=== PATIENT | male | born 1965 | race Caucasian/White ===

== ENCOUNTER 2020-07-01 13:34 | Inpatient (IN) | payer OTHER ==
[2020-07-01] MEDS ORDERED: Heparin 10,000 UNITS/ 10 ML VIAL ONE (14:12)
[2020-07-01] MEDS ORDERED: Aspirin Chewable 81 MG TAB ONE (14:16)
[2020-07-01 14:21] LABS: #Basophils 0.1 thou/uL (0.0-0.2); #Eosinphils 0.1 thou/uL (0.0-0.7); #Lymphocytes 1.7 thou/uL (1.20-3.40); #Monocytes 0.7 thou/uL (0.11-0.59); #Neutrophils 10.4 thou/uL (1.40-6.50); %Basophils 0.5 % (0.0-1.0); %Eosinophils 0.5 % (0.0-10.0); %Monocytes 5.4 % (0.0-10.0); %Neutrophils 80.7 % (42.0-75.0); Hemoglobin 14.4 g/dL (14.0-18.0); Mean Corpuscular Hemoglobin 32.4 pg (27.0-31.0); Mean Corpuscular Volume 95.4 fL (78.0-98.0); Mean Platelet Volume 8.6 fL (7.4-10.4); Platelet Count 217 thou/uL (130-400); RBC Distribution Width 12.5 % (11.5-14.5); Red Blood Cell (RBC) Count 4.45 mill/uL (4.70-6.10); White Blood Cell (WBC) Count 12.9 thou/uL (4.8-10.8)
[2020-07-01] MEDS ORDERED: Aspirin 325 MG TAB ONE (14:21)
[2020-07-01 14:36] LABS: Prothrombin Time 13.4 sec (12.0-14.7)
--- NOTE | 2020-07-01 14:38 | RAD ---
PORTABLE CHEST: Date: 07/01/2020 INDICATION: Chest pain. COMPARISON: 12/12/2014. FINDINGS: Lungs appear clear. No definite infiltrate. No evidence of vascular congestion. Heart and mediastinum unremarkable. IMPRESSION: No acute findings. POS: [facility]
[2020-07-01 14:48] LABS: ALT (SGPT) 22 U/L (8-55); AST (SGOT) 45 U/L (5-34); Albumin 4.2 g/dL (3.5-5.0); Alkaline Phosphatase 90 U/L (40-110); Anion Gap 13 mmol/L (10-20); BUN (Urea Nitrogen) 12 mg/dL (8.4-25.7); Bilirubin, Total 0.7 mg/dL (0.2-1.2); CK (CPK) 564 U/L (30-200); Calc. Creatinine Clearance 0 mL/min (70-130); Calcium 9.3 mg/dL (7.8-10.44); Carbon Dioxide 22 mmol/L (22-29); Chloride 107 mmol/L (98-107); Estimated GFR-MDRD 68; Glucose 103 mg/dL (70-105); Lipase 12 U/L (8-78); Potassium 3.9 mmol/L (3.5-5.1); Protein, Total 7.2 g/dL (6.0-8.3); Sodium 138 mmol/L (136-145)
[2020-07-01] MEDS ORDERED: Milk Of Magnesia 30 ML UDCUP PO PRN (15:14)
[2020-07-01] MEDS ORDERED: Zolpidem Tartrate 5 MG TAB PO PRN (15:14)
[2020-07-01] MEDS ORDERED: Aggrastat 12.5 MG/250 ML 250 ML IVPB SCH (15:15)
[2020-07-01] MEDS ORDERED: Sodium Chloride 0.9% 250 ML IV SCH (15:15)
[2020-07-01] MEDS ORDERED: Nitroglycerin 0.4 MG TAB (25 Tab Bottle) ONE (15:36)
--- NOTE | 2020-07-01 15:56 | HP ---
CHIEF COMPLAINT: Chest pain. HISTORY OF PRESENT ILLNESS: Mr. Grande is a very pleasant 54-year-old white gentleman who comes to the hospital for chest pain. He states he started having chest pain this morning at 8 a.m. We saw him at 2 p.m. He decided to come in and in the ER, he was found to have inferior ST elevation with reciprocal changes, so Cardiology was consulted immediately. On my evaluation, Mr. Grande states his pain is better after he was given nitroglycerin. We took emergently to the catheterization lab, and he was found to have an occluded distal RCA. There seemed to be a ruptured plaque in the proximal portion of the RCA and severely stenosed at that point, and then most likely thrombus had just flown downstream and blocked the bifurcation. We ballooned the area of concern, and there was diffuse disease distally in all the small RPL and RPA. Two drug-eluting stents were placed in the prox and mid RCA. Good results. He does have some ostial RCA, but this is not significant. We then took pictures of the left side. There is mild to moderate disease, nothing to revascularize at that point. EF is about 35%. He is chest pain free now. PAST MEDICAL HISTORY: Sleep apnea. OUTPATIENT MEDICATIONS: He takes an allergy pill in the morning. ALLERGIES: 1. TESSALON PERLES. 2. MORPHINE MAKES HIM GO WILD AND CRAZY HE STATES. FAMILY HISTORY: Noncontributory. SOCIAL HISTORY: Smokes a pack a day for many years now. Drinks about 4 beers a day. No drug use. REVIEW OF SYSTEMS: A 12-point review of systems was done and was all negative unless stated in the History of Present Illness. PHYSICAL EXAMINATION: VITAL SIGNS: Temperature 98.2, pulse 62, respiratory rate 16, saturating 99% on room air, and blood pressure 119/47. GENERAL: Awake, alert, and oriented x3. No distress. HEENT: Normocephalic, atraumatic. NECK: Supple. LUNGS: Clear. CARDIOVASCULAR: S1 and S2. No S3 or S4. No murmurs. ABDOMEN: Soft. Positive bowel sounds. EXTREMITIES: No edema. SKIN: Warm and dry. LABORATORY DATA: Laboratory work was reviewed. CBC with a white count of 12, hemoglobin of 14, hematocrit 42, and platelet count of 217. Coags were unremarkable. Chemistries were unremarkable. GFR was 68. AST was 45. CK was 564. Troponin is pending at the time of this dictation. EKG showed inferior ST elevations with reciprocal changes. Chest x-ray was unremarkable. ASSESSMENT: 1. Inferior ST-elevation myocardial infarction. 2. Status post drug-eluting stent to the right coronary artery. 3. Tobacco abuse. 4. Ischemic cardiomyopathy, reduced ejection fraction post myocardial infarction. 5. Sleep apnea with noncompliance. PLAN: 1. Dual anti-platelet therapy for one year. He states he is very good taking all his medications, and he wants the best type of stent. He states he will take his medication. He is aware of the risks of not taking it, which include fatal MIs and he verbalized understanding of this and agreed to this before the procedure. 2. High dose statin. 3. We will see how his blood pressure does in the next few days to see if we can start beta gustavo and LUKAS inhibitors. 4. Echocardiogram to be done. 5. PPI for stress ulcer prophylaxis. 6. Subcu Lovenox for DVT prophylaxis. 7. Likely home in the next 2 or 3 days. May need LifeVest depending on ejection fraction on echo. Job ID: [id number]
[2020-07-01 16:41] LABS: CKMB 87.2 ng/mL (0-6.6); Troponin I 14.558 ng/mL (< 0.028)
[2020-07-01] MEDS ORDERED: Morphine 4 MG/ML VIAL ONE (16:54)
[2020-07-01 17:07] VITALS: BMI 32.1
[2020-07-01] MEDS: TICAGRELOR 90 MG TABLET PO SCH (20:34)
[2020-07-01] MEDS: Atorvastatin Calcium 40 MG TAB PO SCH (20:34)
[2020-07-01] MEDS: Morphine 2 MG/ML VIAL SLOW IVP PRN (21:09)
[2020-07-01 21:38] LABS: CKMB 128.7 ng/mL (0-6.6)
[2020-07-01 21:57] LABS: Troponin I 58.049 ng/mL (< 0.028)
[2020-07-01] MEDS: traMADol HCl 50 MG TAB PO PRN (22:47)
[2020-07-01] MEDS: Mag-Al 1200 mg/1200 mg/30 ML UDCUP PO PRN (23:49)
[2020-07-02] MEDS: Morphine 2 MG/ML VIAL SLOW IVP PRN (00:34)
[2020-07-02] MEDS ORDERED: Morphine 2 MG/ML VIAL SLOW IVP SCH (01:30)
[2020-07-02 03:26] LABS: #Lymphocytes 1.1 thou/uL (1.20-3.40); #Monocytes 0.9 thou/uL (0.11-0.59); #Neutrophils 11.1 thou/uL (1.40-6.50); %Basophils 0.3 % (0.0-1.0); %Eosinophils 0.3 % (0.0-10.0); %Lymphocytes 8.5 % (21.0-51.0); %Monocytes 6.7 % (0.0-10.0); %Neutrophils 84.2 % (42.0-75.0); Hemoglobin 13.4 g/dL (14.0-18.0); Mean Corpuscular HGB CONC 33.8 g/dL (32.0-36.0); Mean Corpuscular Hemoglobin 32.2 pg (27.0-31.0); Mean Corpuscular Volume 95.3 fL (78.0-98.0); Platelet Count 187 thou/uL (130-400); RBC Distribution Width 12.4 % (11.5-14.5); Red Blood Cell (RBC) Count 4.16 mill/uL (4.70-6.10); White Blood Cell (WBC) Count 13.2 thou/uL (4.8-10.8)
[2020-07-02 03:48] LABS: ALT (SGPT) 32 U/L (8-55); AST (SGOT) 98 U/L (5-34); Albumin 3.9 g/dL (3.5-5.0); Alkaline Phosphatase 80 U/L (40-110); Anion Gap 13 mmol/L (10-20); BUN (Urea Nitrogen) 12 mg/dL (8.4-25.7); Bilirubin, Total 0.9 mg/dL (0.2-1.2); Calc. Creatinine Clearance 138 mL/min (70-130); Carbon Dioxide 20 mmol/L (22-29); Cardiac Risk 4.7 (Less than 4.5); Chloride 106 mmol/L (98-107); Cholesterol 185 mg/dl (< 200 Desired); Estimated GFR-MDRD Greater than 90; Globulin 2.8 g/dL (2.4-3.5); Glucose 132 mg/dL (70-105); HDL Cholesterol 39 mg/dL (>60 Neg Risk); LDL Cholesterol, Calculated 127 mg/dL; Potassium 3.8 mmol/L (3.5-5.1); Protein, Total 6.7 g/dL (6.0-8.3); Sodium 135 mmol/L (136-145); Triglycerides 93 mg/dL (Less than 150)
[2020-07-02] MEDS: Aspirin Chewable 81 MG TAB PO SCH (07:46)
[2020-07-02] MEDS: TICAGRELOR 90 MG TABLET PO SCH ×2 (07:46→20:51)
[2020-07-02] MEDS ORDERED: Lisinopril 2.5 MG TAB PO SCH ×2 (09:00→11:57)
[2020-07-02] MEDS: Mag-Al 1200 mg/1200 mg/30 ML UDCUP PO PRN (09:16)
[2020-07-02] MEDS: Enoxaparin Sodium 30 MG/0.3 ML SYRINGE SC SCH (10:47)
--- NOTE | 2020-07-02 11:56 | PDOC.CPN ---
- Subjective Date: 07/02/20 Time: 11:54 Interval history: He is doing better. No chest pain, no SOB. No bleeding issues. - Review of Systems General: denies: fever/chills, weight/appetite/sleep changes, night sweats, fatigue Respiratory: denies: cough, congestion, shortness of breath, exercise intolerance Cardiovascular: denies: chest pain, palpitation, edema, paroxysmal nocturnal dyspnea, orthopnea Gastrointestinal: denies: nausea, vomiting, diarrhea, constipation, abd pain, GI bleeding Musculoskeletal: denies: pain, tenderness, stiffness, swelling, arthritis/ arthralgias Neurological: denies: numbness, syncope, seizure, weakness - Objective Allergies/Adverse Reactions: Allergies Allergy/AdvReac Type Severity Reaction Status Date / Time benzonatate Allergy Intermediate Verified 07/01/20 17:28 [From Chano Wright] codeine Allergy Intermediate Lack of Verified 07/01/20 17:22 Appetite Visit Medications: Current Medications Al Hydroxide/Mg Hydroxide (Maalox) 30 ml PO Q3H PRN PRN Reason: Indigestion Last Admin: 07/02/20 09:16 Dose: 30 ml Aspirin (Aspirin Chewable) 81 mg PO DAILY [facility] Last Admin: 07/02/20 07:46 Dose: 81 mg Atorvastatin Calcium (Lipitor) 80 mg PO HS [facility] Last Admin: 07/01/20 20:34 Dose: 80 mg Enoxaparin Sodium (Lovenox) 30 mg SC 0900 [facility] Last Admin: 07/02/20 10:47 Dose: 30 mg Lisinopril (Zestril) 1.25 mg PO DAILY [facility] Last Admin: 07/02/20 07:46 Dose: 1.25 mg Magnesium Hydroxide (Milk Of Magnesium) 30 ml PO Q12H PRN PRN Reason: Constipation Metoprolol Succinate (Toprol Xl) 12.5 mg PO DAILY [facility] Last Admin: 07/02/20 07:47 Dose: 12.5 mg Morphine Sulfate (Morphine) 2 mg SLOW IVP Q4H PRN PRN Reason: Pain Last Admin: 07/02/20 00:34 Dose: 2 mg Pantoprazole Sodium (Protonix) 40 mg PO DAILY [facility] Last Admin: 07/02/20 07:46 Dose: 40 mg Ticagrelor (Brilinta) 90 mg PO BID [facility] Last Admin: 07/02/20 07:46 Dose: 90 mg Tramadol HCl (Ultram) 50 mg PO Q6H PRN PRN Reason: Pain Last Admin: 07/01/20 22:47 Dose: 50 mg Zolpidem Tartrate (Ambien) 5 mg PO HSPRN PRN PRN Reason: Insomnia Vital Signs & Weight: Vital Signs Temp Pulse Pulse BP BP Pulse Ox Pulse Ox 07/02/20 11:00 98.0 F 07/02/20 09:18 82 76 135/80 168/87 H 95 100 07/02/20 07:00 98.2 F 07/02/20 04:00 97.7 F 07/02/20 00:00 97.5 F L Weight 224 lb 3.362 oz - Physical Exam General: alert & oriented x3 HEENT: mucus membranes moist Neck: supple neck Cardiac: regular rate and rhythm Lungs: clear to auscultation Neuro: grossly intact Abdomen: active bowel sounds Extremities: no edema Skin: clear Musculoskeletal: no pain - Labs Result Diagrams: 07/02/20 03:07 07/02/20 03:07 Troponin/CKMB CK-MB (CK-2) 128.7 ng/mL (0-6.6) H* 07/01/20 21:00 Troponin I 58.049 ng/mL (< 0.028) H* 07/01/20 21:00 - Telemetry Sinus rhythms and dysrhythmias: sinus rhythm - Assessment/Plan Assessment/Plan: 1. Inferior STEMI 2. S/P TIAGO to RCA 3. Late presentation MD 4. Ischemic CM EF at 35% on LHC, awaiting echo. 5. Tobacco abuse 6. Seep apnea. PLAN: - Continue TALAT with brilinta ands Aspirin 81 - High dose statrin - Low dose BB. - Will start Entresto. - Echo pending.
[2020-07-02] MEDS: traMADol HCl 50 MG TAB PO PRN (20:50)
[2020-07-02] MEDS: Atorvastatin Calcium 40 MG TAB PO SCH (20:51)
[2020-07-03] MEDS: Enoxaparin Sodium 30 MG/0.3 ML SYRINGE SC SCH (10:09)
[2020-07-03] MEDS: TICAGRELOR 90 MG TABLET PO SCH (10:09)
[2020-07-03] MEDS: Aspirin Chewable 81 MG TAB PO SCH (10:09)
[2020-07-03] MEDS: traMADol HCl 50 MG TAB PO PRN (10:16)
[2020-07-03 11:47] VITALS: BP 120/74; TEMP 96.6
--- NOTE | 2020-07-03 18:26 | DIS ---
DATE OF ADMISSION: 07/01/2020 DATE OF DISCHARGE: 07/03/2020 DISCHARGING PHYSICIAN: Johnathon Young MD PRIMARY DIAGNOSES: 1. Acute inferior ST-elevation myocardial infarction. 2. Ischemic cardiomyopathy. PROCEDURES PERFORMED: 1. Left heart catheterization. 2. Percutaneous coronary intervention with drug-eluting stent to the right coronary artery. 3. Echocardiogram. 4. Chest x-ray. SUMMARY: Mr. Grande is a pleasant 54-year-old gentleman, who comes to the hospital for chest pain. He was taken emergently to the catheterization lab as he was found to have inferior ST elevations and was found to have an occluded distal RCA. Thought to be large thrombus on the proximal vessel from a ruptured plaque that floated downstream and occluded the distal bifurcation. This was ballooned opened and restored flow distally and stented the proximal ruptured plaque which was stenosing. He did well postoperatively. His EF on the heart cath was about 30% to 35%; however, on the echo, it was a lot better, probably back to normal about 50% to 55%. with inferior wall still somewhat akinetic. He is doing well. He denies any issues. His rhythm remained stable with no arrhythmias, not even PVCs. He was started on Brilinta and low-dose aspirin as well as metoprolol and Entresto. He is tolerating all his medications without issues. His blood pressure is holding well. He will follow up with me in about 2 to 4 weeks. Follow up with primary care doctor. Tobacco cessation counseling was performed. Over 45 minutes spent at bedside with the patient counseling on discharge. Job ID: [id number]
--- NOTE | 2020-07-06 12:12 | EKG ---
Test Reason : Blood Pressure : / mmHG Vent. Rate : 064 BPM Atrial Rate : 064 BPM P-R Int : 150 ms QRS Dur : 090 ms QT Int : 402 ms P-R-T Axes : 024 024 065 degrees QTc Int : 414 ms Normal sinus rhythm Inferior infarct , possibly acute ACUTE MO / STEMI Consider right ventricular involvement in acute inferior infarct Abnormal ECG Confirmed by BRISA Medellin, DANIEL ([id number]), commissioning editor APURVA ARRINGTON ([id number]) on 07/06/2020 12:11:58 PM Referred By: Confirmed By:DANIEL LEDEZMA M.D.
== END 2020-07-03 17:09 | disposition home or self-care (01) | DRG 247 ==
LOC: ERS 13:34 → SDC 14:00 → ERS 14:24 → CCU 15:59 → 2NO 07-02 17:42
PROVIDERS: ADMIT Internal Medicine Cardiovascular Disease; ATTEND Internal Medicine Cardiovascular Disease
PROC: 027034Z Dilation of Coronary Artery, One Artery with Drug-eluting Intraluminal Device, Percutaneous Approach (ICD-10-PCS; principal; 2020-07-01)
PROC: 4A023N7 Measurement of Cardiac Sampling and Pressure, Left Heart, Percutaneous Approach (ICD-10-PCS; 2020-07-01)
PROC: B2111ZZ Fluoroscopy of Multiple Coronary Arteries using Low Osmolar Contrast (ICD-10-PCS; 2020-07-01)
PROC: B2151ZZ Fluoroscopy of Left Heart using Low Osmolar Contrast (ICD-10-PCS; 2020-07-01)
DX: I21.19 ST elevation (STEMI) myocardial infarction involving other coronary artery of inferior wall (principal); I25.5 Ischemic cardiomyopathy; G47.30 Sleep apnea, unspecified; F17.210 Nicotine dependence, cigarettes, uncomplicated; Z88.5 Allergy status to narcotic agent; Z88.8 Allergy status to other drugs, medicaments and biological substances; Z91.19 Patient's noncompliance with other medical treatment and regimen
CPT/HCPCS: 36415; 71045; 80053; 80061; 82550; 82553; 83690; 83880; 84443; 84484; 85025; 85347; 85610; 85730; 92933; 93005; 93010; 93306; 93458; 93798; 94760; C1757; C1874; C9602; J1644; J1650; J2270

== ENCOUNTER 2020-07-13 16:36 | Observation (INO) | payer OTHER ==
[2020-07-13] MEDS ORDERED: Aspirin Chewable 81 MG TAB ONE (16:58)
[2020-07-13 17:15] LABS: #Basophils 0.1 thou/uL (0.0-0.2); #Eosinphils 0.2 thou/uL (0.0-0.7); #Lymphocytes 1.6 thou/uL (1.20-3.40); #Monocytes 0.7 thou/uL (0.11-0.59); #Neutrophils 5.6 thou/uL (1.40-6.50); %Basophils 0.7 % (0.0-1.0); %Eosinophils 2.9 % (0.0-10.0); %Lymphocytes 19.9 % (21.0-51.0); %Monocytes 8.2 % (0.0-10.0); %Neutrophils 68.4 % (42.0-75.0); Hemoglobin 14.8 g/dL (14.0-18.0); Mean Corpuscular HGB CONC 34.3 g/dL (32.0-36.0); Mean Corpuscular Hemoglobin 32.5 pg (27.0-31.0); Mean Platelet Volume 8.2 fL (7.4-10.4); Platelet Count 312 thou/uL (130-400); RBC Distribution Width 12.1 % (11.5-14.5); Red Blood Cell (RBC) Count 4.56 mill/uL (4.70-6.10); White Blood Cell (WBC) Count 8.2 thou/uL (4.8-10.8)
[2020-07-13 17:39] LABS: ALT (SGPT) 20 U/L (8-55); AST (SGOT) 14 U/L (5-34); Albumin 4.3 g/dL (3.5-5.0); Alkaline Phosphatase 109 U/L (40-110); Anion Gap 13 mmol/L (10-20); BUN (Urea Nitrogen) 19 mg/dL (8.4-25.7); Bilirubin, Total 0.6 mg/dL (0.2-1.2); Calc. Creatinine Clearance 0 mL/min (70-130); Calcium 9.6 mg/dL (7.8-10.44); Carbon Dioxide 20 mmol/L (22-29); Chloride 106 mmol/L (98-107); Estimated GFR-MDRD 73; Globulin 3.1 g/dL (2.4-3.5); Glucose 105 mg/dL (70-105); Protein, Total 7.4 g/dL (6.0-8.3); Sodium 135 mmol/L (136-145)
--- NOTE | 2020-07-13 18:04 | RAD ---
PORTABLE CHEST: 07/13/20 HISTORY: Chest pain. COMPARISON: 07/01/20 study. Heart size appears slightly enlarged. Mediastinal structures are unremarkable. The lungs are clear of infiltrates. No signs of failure. IMPRESSION: Minimal cardiomegaly. No acute findings. POS: OFF
--- NOTE | 2020-07-13 18:49 | PDOC.FPRHP ---
- Allergies/Adverse Reactions Allergies Allergy/AdvReac Type Severity Reaction Status Date / Time benzonatate Allergy Intermediate Verified 07/01/20 17:28 [From Chano Wright] codeine Allergy Intermediate Lack of Verified 07/01/20 17:22 Appetite - Home Medications Medication Instructions Recorded Confirmed Type Esomeprazole Magnesium [Nexium] 20 mg PO DAILY 07/01/20 07/01/20 History Levocetirizine Dihydrochloride 5 mg PO DAILY 07/01/20 07/01/20 History [Xyzal] Aspirin Chewable [Aspirin Chewable 81 mg PO DAILY #30 tab 07/03/20 Rx Tablet] Atorvastatin Calcium [Lipitor] 80 mg PO HS #30 tab 07/03/20 Rx Metoprolol Succinate [Toprol XL] 12.5 mg PO DAILY #30 tab 07/03/20 Rx Sacubitril/Valsartan [Entresto 24 1 tab PO BID #60 tab 07/03/20 Rx mg-26 mg Tablet] Ticagrelor [Brilinta] 90 mg PO BID #60 tab 07/03/20 Rx - History PMHx: PSHx: FHx: Social: MEDICAL HISTORY Notes: MD. MALE SURGICAL HISTORY CARDIAC STENT X 3. Patient drinks every day, less than 5 drinks per day, Alcohol history notes: 2- 3 BEERS DAILY, Patient denies drug use, Patient is a former tobacco user, smoked cigarettes, Patient quit smoking in the past year, Tobacco history notes : 35 -40 YEAR HX OF SMOKING. - Vital signs BP: [] HR: [] RR: [] Tmax: [] Pox: []% on [] Wt: [] FMR H&P: Results - Labs Result Diagrams: 07/13/20 16:55 07/13/20 16:55 Lab results: WBC 8.2 thou/uL (4.8-10.8) 07/13/20 16:55 Hgb 14.8 g/dL (14.0-18.0) 07/13/20 16:55 Hct 43.3 % (42.0-52.0) 07/13/20 16:55 MCV 95.0 fL (78.0-98.0) 07/13/20 16:55 Plt Count 312 thou/uL (130-400) 07/13/20 16:55 Neutrophils % 68.4 % (42.0-75.0) 07/13/20 16:55 Sodium 135 mmol/L (136-145) L 07/13/20 16:55 Potassium 4.0 mmol/L (3.5-5.1) 07/13/20 16:55 Chloride 106 mmol/L (98-107) 07/13/20 16:55 Carbon Dioxide 20 mmol/L (22-29) L 07/13/20 16:55 BUN 19 mg/dL (8.4-25.7) 07/13/20 16:55 Creatinine 1.05 mg/dL (0.7-1.3) 07/13/20 16:55 Glucose 105 mg/dL (70-105) 07/13/20 16:55 Calcium 9.6 mg/dL (7.8-10.44) 07/13/20 16:55 Total Bilirubin 0.6 mg/dL (0.2-1.2) 07/13/20 16:55 AST 14 U/L (5-34) 07/13/20 16:55 ALT 20 U/L (8-55) 07/13/20 16:55 Alkaline Phosphatase 109 U/L (40-110) 07/13/20 16:55 CK-MB (CK-2) 1.0 ng/mL (0-6.6) 07/13/20 16:55 B-Natriuretic Peptide 85.1 pg/mL (0-100) 07/13/20 16:55 Serum Total Protein 7.4 g/dL (6.0-8.3) 07/13/20 16:55 Albumin 4.3 g/dL (3.5-5.0) 07/13/20 16:55 FMR H&P: Upper Level - Plan Date/Time: 07/13/20 8882 I, [], have evaluated this patient and agree with findings/plan as outlined by help desk intern resident. Pertinent changes/additions are listed here.
[2020-07-13] MEDS ORDERED: Nitroglycerin 0.4 MG TAB (25 Tab Bottle) PO PRN (19:34)
[2020-07-13 20:38] VITALS: BMI 29.4
[2020-07-13] MEDS ORDERED: Atorvastatin Calcium 40 MG TAB PO SCH (21:00)
[2020-07-13 21:08] LABS: Troponin I 0.051 ng/mL (< 0.028)
[2020-07-13] MEDS: TICAGRELOR 90 MG TABLET PO SCH (23:24)
[2020-07-13 23:33] LABS: Troponin I 0.053 ng/mL (< 0.028)
--- NOTE | 2020-07-13 23:53 | HP ---
CHIEF COMPLAINT: Chest pain. HISTORY OF PRESENT ILLNESS: Mr. Grande is a 54-year-old male who recently had inferior ST-elevation, inferior wall OH requiring a stent RCA, presented to the emergency room with chest pain that has been going on and off. Today, the patient describes the pain as right-sided, comes and goes, sharp in nature. The pain is different than when he had the MRI. At that time, he had epigastric and throat pain. Initial workup in the emergency room including troponin showed 0.076, but this is down trending from the time of discharge. EKG showed nonspecific changes T-wave inversions. Given patient cardiac history, the patient is being admitted to hospital for further management and to rule out acute coronary syndrome. PAST MEDICAL HISTORY: 1. Inferior wall myocardial infarction. 2. Hyperlipidemia. 3. Hypertension. 4. Cigarette smoker. 5. Cardiomyopathy with ejection fraction of 35%. PAST SURGICAL HISTORY: Cardiac stent. FAMILY HISTORY: Reviewed and noncontributory. SOCIAL HISTORY: The patient has a history of long-time smoking. Drinks alcohol moderately. HOME MEDICATIONS: Please see home medication reconciliation form for updated medications. ALLERGY: Allergy to benzonatate, codeine. REVIEW OF SYSTEMS: Review of 14 systems negative except what is mentioned in history of present illness. PHYSICAL EXAMINATION: VITAL SIGNS: Blood pressure is 130/85, respiratory rate is 14, heart rate is 65, temperature 98.6. HEAD AND NECK: Normocephalic, atraumatic. Neck is supple. No JVD. HEART: S1, S2. Regular. ABDOMEN: Soft and nontender. Bowel sounds present. NEUROLOGIC: Awake, alert, oriented x3. PSYCHIATRIC: Normal mood. EXTREMITIES: No clubbing, cyanosis. IMAGING: Chest x-ray shows minimal cardiomegaly. No acute findings. ASSESSMENT AND PLAN: 1. Acute chest pain, rule out acute coronary syndrome. 2. History of myocardial infarction with stent to the right coronary artery, 2 weeks ago. 3. Cardiomyopathy, ischemic. 4. Cigarette smoker. PLAN: 1. Admit. 2. Telemetry monitoring. 3. Aspirin. 4. Serial troponin. 5. Consider Cardiology consultation in a.m. for evaluation further recommendations. 6. Reconcile home medications. 7. DVT prophylaxis as appropriate. 8. Expected length of stay, 1 midnight, if patient is stable and further workup negative. Job ID: [id number]
--- NOTE | 2020-07-14 03:11 | CON ---
DATE OF CONSULTATION: 07/13/2020 INDICATION FOR CONSULTATION: This is a 54-year-old gentleman, who recently underwent angioplasty and stent placement to the right coronary artery suffering an inferior myocardial infarction. He was at home. He had been doing very well and today between 3:30 and 4:00, was sitting and watching TV and he noticed some sharp stabbing pains in his chest, he had 4 to 5 episodes of this and then he reported to the emergency room. His EKG has remained unchanged. Cardiac enzymes showed original cardiac troponin I of 0.076, which has trended down to 0.051 and most likely is indication for continuing trending enzymes after a recent myocardial infarction. He just was discharged from the hospital on 07/03/2020. His BNP is 85. Otherwise, he says he has not had any problems after the angioplasty and stents. He has had no further chest pain except for the sharp stabbing pains. He also smoked in the past. He says that he has now stop smoking. PAST MEDICAL HISTORY: Significant for the coronary artery disease and sleep apnea. He has seasonal allergies. ALLERGIES: HE IS ALLERGIC TO TESSALON PERLES. HE ALSO HAS SOME PROBLEMS WITH TAKING MORPHINE. HE IS INTOLERANT TO THE MEDICATION. MEDICATIONS: 1. His medications on discharge, he was sent home with Brilinta and aspirin. Brilinta was 90 mg twice a day and also aspirin 81 mg a day. 2. He also was taking atorvastatin 40 mg a day as well as metoprolol 12.5 mg b.i.d. and p.r.n. nitroglycerin, and also Entresto one b.i.d. Brilinta was 90 mg b.i.d. 3. He also takes I believe Xyzal 5 mg a day. 4. He also takes Nexium 20 mg a day. SOCIAL HISTORY: He has stopped smoking. FAMILY HISTORY: Noncontributory. REVIEW OF SYSTEMS: A 12-point review of systems unremarkable except what is noted in the history of present illness. PHYSICAL EXAMINATION: GENERAL: Reveals a well-developed, well-nourished gentleman, who is in no acute distress at this time. VITAL SIGNS: Blood pressure is 134/76. He is afebrile. Heart rate is 99 and shows a sinus rhythm, respiratory rate is 21, O2 saturation 96%. HEENT: Unremarkable. Carotid pulses are present without bruits. CHEST: Clear to auscultation without rales, rhonchi, or wheezing. CARDIOVASCULAR: Revealed a regular rate and rhythm. Normal S1, S2. There is no significant S3 or S4 noted. There were no significant murmurs, heaves, thrills, bruits, or rubs. ABDOMEN: Soft and nontender. Positive bowel sounds are present. There is no organomegaly or masses noted. Femoral pulses are present. EXTREMITIES: Showed no clubbing, cyanosis, or edema. Pedal pulses are also present. SKIN: Warm and dry. DIAGNOSTIC STUDIES: EKG shows a sinus rhythm, heart rate is 70 beats per minute with T-wave inversions in II, III, and aVF as well as in V4 through V6. He also has Q-waves in leads III and aVF, as well as in lead II, somewhat small, but also evidence of a recent inferior myocardial infarction. IMPRESSION: 1. History of coronary artery disease, which actually appears to be stable. He is status post angioplasty and stent placement to the right coronary artery after acute inferior myocardial infarction. 2. Atypical chest pain. He remains stable tonight, possibly can be discharged home tomorrow. This does not appear to be cardiac in nature. 3. History of tobacco abuse. He says he stopped smoking. 4. History of mild to moderate ischemic cardiomyopathy. He will continue on the Entresto. He is to follow up with Dr. Young in the next 2 to 4 weeks. His echocardiogram did show evidence of inferior myocardial infarction with akinesis or severe hypokinesis of the inferior wall. The echocardiogram was performed on 07/02/2020. Ejection fraction at that time was felt to be 50% to 55%. 5. History of diastolic dysfunction. He has a grade 2/3 diastolic dysfunction. We will agree with the present management with the beta blockers and Entresto. Job ID: [id number]
[2020-07-14 07:43] VITALS: TEMP 97.6
[2020-07-14] MEDS: TICAGRELOR 90 MG TABLET PO SCH (07:47)
[2020-07-14] MEDS ORDERED: Loratadine 10 MG TAB PO SCH (09:00)
[2020-07-14] MEDS ORDERED: Aspirin 325 mg Enteric Coated Tablet PO SCH (09:00)
[2020-07-14 11:24] VITALS: BP 120/70
[2020-07-14 11:46] LABS: SARS-CoV-2 MS2 Positive; SARS-CoV-2 N Gene Negative; SARS-CoV-2 S Gene Negative; SARS-CoV-2 by NAA Not Detected (NotDetected); SARS-CoV-2 orf1ab Negative
--- NOTE | 2020-07-15 06:04 | DIS ---
DATE OF ADMISSION: 07/13/2020 DATE OF DISCHARGE: 07/14/2020 DISCHARGE DIAGNOSES: 1. Atypical chest pain. 2. Coronary artery disease. HOSPITAL COURSE: The patient is a 54-year-old male who initially presented to the hospital with chest pain. His troponin x3 were done. They had been significantly improving since his previous hospital admission, which was on 07/03. The patient on 07/03, underwent an underwent a drug-eluting stent to the right coronary artery. The patient was seen by Cardiology and was okay to be discharged. He also had a D-dimer done, which was negative. It was 0.30. The patient felt well. He was discharged home. He will follow up with his primary. HOME MEDICATIONS: 1. Xyzal 5 mg daily. 2. Nexium 20 mg daily. 3. Atorvastatin 40 mg daily. 4. Aspirin 81 mg daily. 5. Brilinta 90 mg b.i.d. 6. Entresto 1 tab b.i.d. 7. Metoprolol 12.5 p.o. daily. PHYSICAL EXAMINATION: VITAL SIGNS: On discharge, temperature 97.6, , 16, 97% on room air, 120/70. GENERAL: He is awake, alert, and oriented x3. Does not appear in distress CV: S1, S2 present. No murmurs, rubs, gallops. FOLLOWUP: Again, he will be discharged home to follow up with primary. Job ID: [id number]
--- NOTE | 2020-07-16 14:35 | EKG ---
Test Reason : Blood Pressure : / mmHG Vent. Rate : 082 BPM Atrial Rate : 082 BPM P-R Int : 164 ms QRS Dur : 092 ms QT Int : 372 ms P-R-T Axes : 052 -44 -56 degrees QTc Int : 434 ms Normal sinus rhythm Left axis deviation Inferior-posterior infarct , age undetermined Abnormal ECG Confirmed by GIORGIO DURAN DO ([id number]), photographic editor AYANA SPRINGER ([id number]) on 07/16/2020 2:34:23 PM Referred By: Confirmed By:GIORGIO DURAN DO
== END 2020-07-14 11:00 | disposition home or self-care (01) ==
LOC: ERS 16:36 → 2SW 18:37
PROVIDERS: ADMIT Internal Medicine; ATTEND Internal Medicine
DX: R07.89 Other chest pain (principal); I25.10 Atherosclerotic heart disease of native coronary artery without angina pectoris; I25.5 Ischemic cardiomyopathy; I10 Essential (primary) hypertension; I25.2 Old myocardial infarction; E78.5 Hyperlipidemia, unspecified; G47.30 Sleep apnea, unspecified; Z79.02 Long term (current) use of antithrombotics/antiplatelets; Z79.82 Long term (current) use of aspirin; Z79.899 Other long term (current) drug therapy; Z87.891 Personal history of nicotine dependence; Z88.5 Allergy status to narcotic agent; Z88.8 Allergy status to other drugs, medicaments and biological substances; Z95.5 Presence of coronary angioplasty implant and graft; Z20.828 Contact with and (suspected) exposure to other viral communicable diseases
CPT/HCPCS: 36415; 71045; 80053; 82553; 83880; 84484; 85025; 85379; 87635; 93005; 94760; G0378; U0003

== ENCOUNTER 2024-12-05 10:35 | Outpatient (CLI) | payer OTHER ==
[~2024-12-05 10:35] MED LIST: Iopamidol 370 76% 100 ML VIAL ONE
== END 2024-12-05 10:36 | disposition home or self-care (01) ==
LOC: CT 10:35
PROVIDERS: ATTEND Nurse Practitioner Family
DX: R31.9 Hematuria, unspecified (principal); M53.9 Dorsopathy, unspecified; R29.898 Other symptoms and signs involving the musculoskeletal system; N28.1 Cyst of kidney, acquired; K57.30 Diverticulosis of large intestine without perforation or abscess without bleeding; M43.17 Spondylolisthesis, lumbosacral region
CPT/HCPCS: 74178